=== PATIENT | male | born 1960 | race Caucasian/White ===

== ENCOUNTER 2018-11-05 20:02 | Emergency (ER) | payer OTHER ==
[~2018-11-05] VITALS: Ht 172.7 cm; Wt 136.1 kg
[~2018-11-05 20:02] MED LIST: ALBU90I INH; ALBU90OI INH; ALPR1 PO; AMOX500 PO; AZIT250 PO; BENZ100A PO; CEPH500 PO; CODGUAEL PO; COLCRYS0.6 MG PO; DOXY100 PO; Esgic Tablet1 EACH PO; GABA300 PO; HYDACE5 PO; IBUP400 PO; IBUP600 PO; INDO50 PO; NAPR500 PO; NEOPOLHYD OS; Naprosyn500 MG PO; Norco 10-325 T1 EACH PO; Norco 5-325 Ta1 EACH PO; OXYACE5T PO; PRED10 PO; PRED20 PO; PREDNISONE; PROB500 PO; RXHYDACE PO; RXOXYACE PO; RXSULTRIDS PO; SULTRIDS PO; TRAM50 PO; Ultram50 MG PO; Voltaren100 GM TOP; [UNRECOGNIZED DRUG - OTHER]; [UNRECOGNIZED DRUG - REMARK]
[2018-11-05] MEDS ORDERED: Voltaren100 GM TOP (20:49)
[2018-11-05] MEDS ORDERED: Naprosyn500 MG PO (20:49)
[2018-11-05] MEDS ORDERED: COLCRYS0.6 MG PO (20:49)
[2018-11-05] MEDS ORDERED: PROB500 PO (20:49)
[2018-11-05] MEDS ORDERED: Probenecid-Col1 EACH PO (20:51)
== END 2018-11-05 21:13 | disposition home or self-care (01) ==
LOC: ER 20:02
DX: M10.9 Gout, unspecified (principal); F17.210 Nicotine dependence, cigarettes, uncomplicated; Z79.899 Other long term (current) drug therapy; Z87.442 Personal history of urinary calculi
CPT/HCPCS: 99283; A9270-GY

== ENCOUNTER 2018-11-14 16:26 | Emergency (ER) | payer OTHER ==
[~2018-11-14] VITALS: Ht 172.7 cm; Wt 136.1 kg
[~2018-11-14 16:26] MED LIST changes: +Probenecid-Col1 EACH PO
[2018-11-14] MEDS ORDERED: Probenecid-Col1 EACH PO (17:11)
[2018-11-14] MEDS ORDERED: Naprosyn500 MG PO (17:11)
== END 2018-11-14 17:25 | disposition home or self-care (01) ==
LOC: ER 16:26
DX: M10.9 Gout, unspecified (principal); Z79.899 Other long term (current) drug therapy; F17.210 Nicotine dependence, cigarettes, uncomplicated
CPT/HCPCS: 99283

== ENCOUNTER → 2023-07-26 | Outpatient (CLI) | payer OTHER ==
[2023-07-26 19:34] LABS: CHOL/HDL RATIO 4.1; Cholesterol 167 mg/dL (50-200); HDL Cholesterol 41 mg/dL (>39); LDL/HDL RATIO 2.4; Low Density Lipoprotein Chol 99 mg/dL (0-110); Triglycerides 134 mg/dL (30-160); Very Low Density Lipoprot Chol 26 mg/dL (6-32)
== END ==
LOC: LAB SHORT 17:22 → LAB 17:22
PROVIDERS: Family Medicine
DX: Z68.42 Body mass index [BMI] 45.0-49.9, adult (principal); E66.01 Morbid (severe) obesity due to excess calories
CPT/HCPCS: 80061

== ENCOUNTER 2024-11-05 18:38 | Emergency (ER) | payer OTHER ==
[~2024-11-05] VITALS: Ht 175.3 cm; Wt 149.7 kg
[~2024-11-05 18:38] MED LIST changes: +ALLO300 PO; +ANORO ELLIPTA1 EAC1 IH; +FLUTICASONE PRO12 GM INH; +HYDR1TAB94 PO; +IPRAT-ALBUT 0.5-3 ML INH; +LORA10ER PO; +LOSARTAN POTASS25 M2 PO; +MONT10T PO; +Melatonin1 MG PO; +Neurontin800 MG PO; +ROSUVASTATIN CAL5 MG PO; +ZOLOFT10013 PO
[2024-11-05 18:46] VITALS: BP 135/79
[2024-11-05] MEDS ORDERED: Ipratropium/Albuterol SulF 2.5-0.5MG/3 ML Amp INH ONE (18:55)
[2024-11-05 19:59] LABS: Albumin, Blood 3.6 g/dL (3.4-5.0); Albumin/Globulin Ratio 0.9 (0.8-1.8); Bilirubin, Total 0.3 mg/dL (0.1-1.0); Bun/Creatinine Ratio 19.1 (12.0-20.0); Creatinine, Blood 0.89 mg/dL (0.60-1.20); Globulin, Blood 3.8 g/dL (2.2-4.0); Magnesium, Blood 2.1 mg/dL (1.6-2.4); Potassium, Blood 3.8 mmol/L (3.5-5.5); Total Protein, Blood 7.4 g/dL (6.4-8.2)
[2024-11-05 20:01] LABS: CORONAVIRUS COVID-19 AG Negative (NEGATIVE); INFLUENZA A AG Negative (NEGATIVE); INFLUENZA B AG Negative (NEGATIVE)
[2024-11-05 20:01] LABS: BASOPHILS ABSOLUTE AUTO 0.03 K/mm3 (0.00-0.23); BASOPHILS PERCENT AUTO 0 % (0-2); EOSINOPHILS ABSOLUTE AUTO 0.22 K/mm3 (0.00-0.68); EOSINOPHILS PERCENT AUTO 2 % (0-6); Hemoglobin 15.9 g/dL (13.5-17.5); IMMATURE GRAN ABSOLUTE AUTO 0.03 K/mm3 (0.00-0.10); IMMATURE GRAN PERCENT AUTO 0 % (0-1); LYMPHOCYTES ABSOLUTE AUTO 1.51 K/mm3 (0.84-5.20); LYMPHOCYTES PERCENT AUTO 15 % (21-46); MONOCYTES ABSOLUTE AUTO 1.01 K/mm3 (0.16-1.47); MONOCYTES PERCENT AUTO 10 % (4-13); Mean Corpuscular HGB 32.1 pg (26.0-34.0); Mean Corpuscular HGB Conc 32.4 g/dL (31.5-36.5); Mean Corpuscular Volume 99 fL (80-100); Mean Platelet Volume 9.5 fL (9.1-12.4); NEUTROPHILS ABSOLUTE AUTO 7.35 K/mm3 (1.96-9.15); NEUTROPHILS PERCENT AUTO 72 % (41-73); Platelet Count 249 K/mm3 (150-400); RDW Coefficient Variation 13.3 % (11.7-14.2); RDW Standard Deviation 48.8 fL (35.1-46.3); Red Blood Cell Count 4.96 M/mm3 (4.30-5.90); White Blood Cell Count 10.15 K/mm3 (4.00-11.30)
== END 2024-11-05 21:11 | disposition home or self-care (01) ==
LOC: ER 18:38
PROVIDERS: Student in an Organized Health Care Education/Training Program
DX: R06.02 Shortness of breath (principal); J44.9 Chronic obstructive pulmonary disease, unspecified; M10.9 Gout, unspecified; F17.210 Nicotine dependence, cigarettes, uncomplicated; Z99.81 Dependence on supplemental oxygen; Z79.899 Other long term (current) drug therapy
CPT/HCPCS: 71045; 80053; 83690; 83735; 83880; 84484; 85025; 87428-QW; 93005; 93010; 94640; 94664; 99285-25

== ENCOUNTER → 2024-11-20 | Outpatient (CLI) | payer OTHER | END | disposition home or self-care (01) | LOC: LAB 10:33 → LAB SHORT 10:33 | DX: N39.43 Post-void dribbling (principal); R30.0 Dysuria | CPT/HCPCS: 87086 ==

== ENCOUNTER 2025-03-10 09:13 | Inpatient (IN) | payer OTHER ==
[~2025-03-10] VITALS: Ht 172.7 cm; Wt 136.6 kg
[~2025-03-10 09:13] MED LIST changes: +CEFP200 PO; +LORA.5 PO
[2025-03-10 10:01] LABS: BASOPHILS ABSOLUTE AUTO 0.03 K/mm3 (0.00-0.23); BASOPHILS PERCENT AUTO 0 % (0-2); EOSINOPHILS ABSOLUTE AUTO 0.15 K/mm3 (0.00-0.68); EOSINOPHILS PERCENT AUTO 2 % (0-6); Hematocrit 44.1 % (37.0-53.0); Hemoglobin 14.1 g/dL (13.5-17.5); IMMATURE GRAN ABSOLUTE AUTO 0.02 K/mm3 (0.00-0.10); IMMATURE GRAN PERCENT AUTO 0 % (0-1); LYMPHOCYTES ABSOLUTE AUTO 1.32 K/mm3 (0.84-5.20); LYMPHOCYTES PERCENT AUTO 15 % (21-46); MONOCYTES ABSOLUTE AUTO 0.59 K/mm3 (0.16-1.47); MONOCYTES PERCENT AUTO 7 % (4-13); Mean Corpuscular HGB Conc 32.0 g/dL (31.5-36.5); Mean Corpuscular Volume 99 fL (80-100); NEUTROPHILS ABSOLUTE AUTO 6.71 K/mm3 (1.96-9.15); NEUTROPHILS PERCENT AUTO 76 % (41-73); NRBC ABSOLUTE 0.00 K/mm3 (0.00-0.02); NRBC Auto 0.0 /100 WBC (0.0-0.2); Platelet Count 232 K/mm3 (150-400); RDW Coefficient Variation 13.1 % (11.7-14.2); RDW Standard Deviation 48.2 fL (35.1-46.3)
[2025-03-10 10:34] LABS: Alanine Aminotransfer (ALT/SGP 23.0 U/L (12-78); Albumin, Blood 3.0 g/dL (3.4-5.0); Albumin/Globulin Ratio 0.8 (0.8-1.8); Anion Gap 4.0 mmol/L (3-11); Aspartate Aminotrans (AST/SGOT 21.0 U/L (12-37); Bilirubin, Total 0.3 mg/dL (0.1-1.0); Blood Urea Nitrogen 12.0 mg/dL (8-24); CO2, Blood 29.0 mmol/L (21-32); Calcium, Blood 8.1 mg/dL (8.5-10.1); Chloride, Blood 106.0 mmol/L (98-108); Creatinine, Blood 0.79 mg/dL (0.60-1.20); Globulin, Blood 3.6 g/dL (2.2-4.0); Glucose, Blood 120.0 mg/dL (70-99); Magnesium, Blood 2.0 mg/dL (1.6-2.4); Potassium, Blood 4.1 mmol/L (3.5-5.5); Sodium, Blood 135.0 mmol/L (136-145); Thyroid Stimulating Hormone 3.17 uIU/mL (0.360-4.800); Total Protein, Blood 6.6 g/dL (6.4-8.2)
[2025-03-10] MEDS ORDERED: CefTRIAXone Sodium 1,000 MG in NS 100 ML IV ONE (11:15)
[2025-03-10] MEDS ORDERED: Labetalol HCL 5 MG/ML 4ML Injection (Single Dose) IV PRN (14:05)
[2025-03-10] MEDS ORDERED: Ipratropium/Albuterol SulF 2.5-0.5MG/3 ML Amp INH SCH (15:05)
[2025-03-10] MEDS ORDERED: Aspir 8181 MG PO (15:46)
[2025-03-10] MEDS ORDERED: BUPR150ER (15:47)
[2025-03-10] MEDS ORDERED: METOPROLOL (15:47)
[2025-03-10] MEDS ORDERED: Dexamethasone Sod Phos 10 MG/ML 1ML VIAL IV STA (16:28)
[2025-03-10] MEDS ORDERED: METO50ER PO (17:07)
[2025-03-10] MEDS ORDERED: TAMS.4ER PO (17:07)
[2025-03-10] MEDS ORDERED: MIDOL COMPLETE1 EAC2 (17:08)
[2025-03-10] MEDS ORDERED: IBUP200 (17:08)
[2025-03-10] MEDS ORDERED: Flonase 0.05% N16 GM (17:08)
[2025-03-10] MEDS ORDERED: Dexamethasone Sodium Phosphate 4 MG/ML 1ML Vial IV SCH (20:00)
[2025-03-10 20:07] VITALS: BP 162/92
--- NOTE | 2025-03-10 20:50 | NUR ---
REPORT GIVEN TO MARCK CHAWLA AT [facility] ICU. PT TO GO TO ROOM 7C BED 2.
[2025-03-10] MEDS ORDERED: Lactobacil 2-S.Thermo-Bifido 1 1 Cap PO SCH (21:00)
[2025-03-10 21:03] VITALS: BP 158/90
[2025-03-10] MEDS ORDERED: Diazepam 5 MG / ML 2ML SYR IV ONE ×3 (21:15→22:30)
--- NOTE | 2025-03-10 22:30 | NUR ---
UPDATE: TRANSPORT REQUESTING ADDITIONAL MEDICATIONS TO BE SENT WITH PT DUE TO SEIZURE RISK. DR. MCGINNIS NOTIFIED WITH ORDERS TO SEND [facility] WITH TRANSPORT. PHARMACY NOTIFIED.
[2025-03-10] MEDS ORDERED: Albuterol 2.5 MG/3 ML VIAL INH PRN (22:45)
--- NOTE | 2025-03-10 23:04 | NUR ---
BRICE CHAWLA RN AT [facility] NEUR[facility] ICU. PT LEFT WITH EMS. CONFUSION INCREASING. PT WAS MEDICATED WITH [facility] X2 FOR ANXIETY/AGITATION. NO SEIZURE ACTIVITY SEEN. PT DID AMBULATE TO WITH 1 ASSIST AND HAD BOWEL MOVEMENT AND DID URINATE. PT DID NOT USE URINAL AND FLUSHED TOILET PRIOR TO LEAVING BATHROOM. NICOTINE PATCH WAS PLACED EARLIER IN SHIFT ON RIGHT UPPER ARM. PT DOES ADMIT TO DRINKING HARD ALCOHOL BUT IS UNABLE TO STATE AMOUNT AND LAST TIME DRANK.
[2025-03-11] MEDS ORDERED: Ipratropium/Albuterol SulF 2.5-0.5MG/3 ML Amp INH SCH (15:05)
== END 2025-03-10 22:48 | disposition short-term general hospital (02) | DRG 91 ==
LOC: ER 09:13 → ERHOLD 09:14 → PCU 18:18
PROVIDERS: Student in an Organized Health Care Education/Training Program; ADMIT Hospitalist
DX: G92.8 Other toxic encephalopathy (principal); G93.6 Cerebral edema; N39.0 Urinary tract infection, site not specified; I16.0 Hypertensive urgency; F10.10 Alcohol abuse, uncomplicated; J44.9 Chronic obstructive pulmonary disease, unspecified; R25.3 Fasciculation; M10.9 Gout, unspecified; E78.5 Hyperlipidemia, unspecified; G62.9 Polyneuropathy, unspecified; Z87.442 Personal history of urinary calculi; Z87.19 Personal history of other diseases of the digestive system; F41.0 Panic disorder [episodic paroxysmal anxiety]; F41.9 Anxiety disorder, unspecified; Z79.899 Other long term (current) drug therapy; F17.210 Nicotine dependence, cigarettes, uncomplicated
CPT/HCPCS: 70450; 71045; 71046; 74177; 80053; 80320; 81001; 82140; 82607; 82746; 82947; 83605; 83690; 83735; 83880; 84146; 84439; 84443; 84484; 85025; 87086; 93005; 93010; 94640; 94664; 94762; 99284-25; 99285-25; A9270; G0378; J0696; J1100; J1953; J3360; J3411; J7030; J7120; Q9967